=== PATIENT | female | born 1970 | race Caucasian/White ===

== ENCOUNTER 2023-06-06 15:00 | Outpatient (REF) | payer OTHER, SELFPAY ==
[2023-06-08 12:27] LABS: Chlamydia Result Negative (Negative); GC Result Negative (Negative)
== END 2023-06-06 15:01 | disposition home or self-care (01) ==
LOC: LBN 15:00
PROVIDERS: Visit Provider Obstetrics & Gynecology
DX: N76.0 Acute vaginitis (principal); Z11.3 Encounter for screening for infections with a predominantly sexual mode of transmission
CPT/HCPCS: 87491; 87591; 87480; 87510; 87660

== ENCOUNTER 2023-06-19 10:52 | Outpatient (REF) | payer OTHER, SELFPAY ==
--- NOTE | 2023-06-19 09:30 | ENDOMET_PTH ---
PATIENT: CHAITANYA GIBSON LOC: [facility] U#:[id number] AGE/SX: 52/F ROOM: RE06/19/[address]: Sudha Pickens DO : 1970 BED: DIS: 06/19/2023 SPEC #: [id number] RECD: 06/19/23 12:52 STATUS: SHRAVAN RE #: [id number] GISELE: 06/19/23 09:[address]: Sudha Pickens DEPT: Surgical Specimen RECD BY: Conchita Cooley Tissues: 1 - ENDOMETRIUM BX/JUNIOR Procedures: GROSS AND MICRO LEVEL 4 Comments: [id number]
== END 2023-06-19 10:53 | disposition home or self-care (01) ==
LOC: LBN 10:52
PROVIDERS: Visit Provider Obstetrics & Gynecology
DX: N85.8 Other specified noninflammatory disorders of uterus (principal); N95.0 Postmenopausal bleeding
CPT/HCPCS: 88305